=== PATIENT | male | born 1950 | race Caucasian/White ===

== ENCOUNTER → 2020-06-24 13:29 | Outpatient (BNVA) | payer MEDICARE, OTHER, SELFPAY | PROVIDERS: Family Provider Family Medicine; PCP Family Medicine; Visit Provider Specialist | DX: Z47.1 Aftercare following joint replacement surgery (principal); Z96.659 Presence of unspecified artificial knee joint | CPT/HCPCS: 73560; 73565 ==

== ENCOUNTER 2024-06-22 12:22 | Emergency (ER) | payer MEDICARE, OTHER, SELFPAY ==
[2024-06-22] VITALS (8 sets, daily range): BP systolic 121–170; BP diastolic 72–76; PULSE 58–88; RESP 16–22; TEMP 36.7; O2SAT 93–100; BMI 32.3
--- NOTE | 2024-06-22 13:05 | ED_ITS ---
HPI - Chest Pain 2 General: Chief Complaint: Chest Pain Stated Complaint: rib pain Time Seen by Provider: 06/22/24 12:59 Source: patient and family Mode of arrival: ambulatory Limitations: no limitations History of Present Illness: Patient presents to the emergency department today companied by his for evaluation treatment of left anterior and left lateral rib pain. Patient states he was outside cutting down a limb indicated to be about 7 inches in diameter. States he used his left hand and was lifting the limb up above his head when he felt a sudden pop and movement of something in his chest. He has had severe pain to his left anterior and lateral rib region since that time. He is concerned that he has broken a rib. Has not taken anything specifically for pain prior to arrival but takes meloxicam, cholesterol pill, and blood pressure medicine daily. Has not noticed an acute shortness of breath or difficulty breathing. Related Data Home Medications Medication Instructions Recorded Confirmed meloxicam 15 mg tablet 15 mg PO DAILY 06/24/20 06/24/20 Previous Rx's Medication Instructions Recorded benzonatate 200 mg capsule 200 mg PO TID PRN cough 10 days 06/22/24 #30 caps lidocaine 4 % topical patch 1 patch topical Q12H PRN pain #15 06/22/24 ea methocarbamol 750 mg tablet 750 mg PO TID #21 tabs 06/22/24 Allergies Allergy/AdvReac Type Severity Reaction Status Date / Time No Known Allergies Allergy Verified 06/24/20 13:16 Review of Systems 2 General: Reports: 10 or more systems reviewed and unremarkable except in HPI and below Physical Exam 2 Const: COMMON NORMALS: no acute distress (While still and in the reclined position.), patient oriented x3 and alert HENMT: COMMON NORMALS: normocephalic, atraumatic and hearing grossly normal bilaterally HEAD & SCALP: normocephalic and atraumatic Eye: COMMON NORMALS: Equal, round and reactive pupils present, EOMs intact bilaterally and conjunctivae normal CONJUNCTIVA: Yes conjunctivae normal P UPIL: Yes Equal, round and reactive pupils present Neck/C-Spine: COMMON NORMALS: full ROM and no JVD Lymph: LYMPHATIC: no lymphadenopathy noted Chest: OTHER: Patient with reproducible and significant tenderness to the left anterior and lateral ribs approximately T4-T8. Patient actually begins to cry out during his physical examination on palpation to his chest. Tenderness to the xiphoid process of the sternum but no mid or proximal sternal tenderness. Resp: COMMON NORMALS: normal respiratory effort, No retractions and No use of accessory muscles OTHER: No sounds or rubs or crackles. Cardio: COMMON NORMALS: no JVD, regular rate and regular rhythm RATE: r egular rate RHYTHM: regular rhythm Extremity: NARRATIVE EXTREMITY EXAM: Patient demonstrates full range of motion to his upper extremities without any acute worsening of pain into the ribs. Patient is actually laying in a reclined position with his arms up above his head which does not seem to be causing him any additional pain. Neuro: COMMON NORMALS: patient oriented x3 SENSORIUM/ORIENTATION: Yes alert Psych: COMMON NORMALS: mental status grossly normal, Normal thought process present, cooperative and normal affect THOUGHT PROCESS: Normal thought process present Skin: COMMON NORMALS: no rashes or lesions noted and turgor normal GENERAL SKIN EXAM: no rashes or lesions noted and turgor normal Course 2 Vital Signs: Vital signs: Vital Signs Temperature 98.1 F 06/22/24 12:26 Pulse Rate 70 06/22/24 15:25 Respiratory Rate 16 06/22/24 15:25 Blood Pressure 125/75 06/22/24 15:25 Pulse Oximetry 98 06/22/24 15:25 Oxygen Delivery Me thod Room Air 06/22/24 15:25 MDM - Chest Pain Medical Decision Making Patient presents emergency department today accompanied by his for evaluation treatment of left anterior and left lateral rib pain after trying to lift a limb he had cut down doing some yard work. Patient had reproducible tenderness over the ribs in this area of discomfort. CT examination showed no signs of acute bony abnormality and no concerns for underlying cardiac or pulmonary issues. Patient was originally treated with morphine but, only had minimal improvement of his discomfort. Patient was then given fentanyl as his heart rate and oxygen were stable. Patient seems to have responded well to this medication. Discussed with patient negative CT findings but, given that these are the ribs, can have pain and discomfort even for couple of weeks. Patient already takes meloxicam. Will provide him a course of benzonatate and some muscle relaxers. Patient is an extremely active 74-year-old who has tolerated his pain medication here without difficulty. I do think he will tolerate muscle relaxer without difficulty but, will give him precautions regarding muscle relaxer use. Patient was also provided an incentive spirometer and recommendations to have follow-up with his primary care doctor next week. Otherwise, any acute change in his condition should be seen and reevaluated sooner. Patient verbalizes his understanding and agreement to treatment plan. Patient had an incidental finding of 5 mm left lower lobe nodule. Patient's discharge paperwork recommended that he also notify his primary care doctor of this finding so he can have the appropriate repeat imaging and monitoring as needed. Differential Diagnosis Unlikely acute massive pulmonary embolism, acute respiratory failure, acute myocardial infarction or cardiac arrest Lab Data 06/22/24 13:11 06/22/24 13:[address] 06/22/24 13:07 IMPRESSION: 1. No acute fracture identified. 2. 5 mm nodule in the left lower lobe. Correlate with previous and/or followup imaging in accordance with the patient's risk category, per Fleischner criteria. Laboratory Results WBC 6.14 10^3/uL (3.29-11.43) 06/22/24 13:11 RBC 4.01 10^6/uL (3.85-5.65) 06/22/24 13:11 Hgb 13.10 g/dL (11.27-16.99) 06/22/24 13:11 Hct 39.3 % (37-53) 06/22/24 13:11 MCV 98.0 fl (82-101) 06/22/24 13:11 MCH 32.7 pg (27-33) 06/22/24 13:11 MCHC 33.3 g/dL (30-55) 06/22/24 13:11 RDW 14.4 % (12.1-15.1) 06/22/24 13:11 Plt Count 155 10^3/cmm (157-399) L 06/22/24 13:11 MPV 9.5 fL (7.4-10.4) 06/22/24 13:11 Neut % (Auto) 69.1 % 06/22/24 13:11 Lymph % (Auto) 18.6 % 06/22/24 13:11 Hunt % (Auto) 10.1 % 06/22/24 13:11 Eos % (Auto) 1.6 % 06/22/24 13:11 Baso % (Auto) 0.3 % 06/22/24 13:11 Neut # (Auto) 4.24 10^3/uL (1.8-7.7) 06/22/24 13:11 Lymph # (Auto) 1.1 10^3/uL (0.8-4.8) 06/22/24 13:11 Hunt # (Auto) 0.6 10^3/uL (0.2-0.9) 06/22/24 13:11 Eos # (Auto) 0.1 10^3/uL (0.0-0.8) 06/22/24 13:11 Baso # (Auto) 0.0 10^3/uL (0.0-0.1) 06/22/24 13:11 Nucleated RBC % (auto) 0 % 06/22/24 13:11 Nucleated RBCs # 0.0 /100WBC 06/22/24 13:11 Sodium 142 mmol/L (136-145) 06/22/24 13:11 Potassium 3.9 mmol/L (3.5-5.1) 06/22/24 13:11 Chloride 105 mmol/L (98-107) 06/22/24 13:11 Carbon Dioxide 26 mmol/L (22-29) 06/22/24 13:11 Anion Gap 14.9 (5-19) 06/22/24 13:11 BUN 18 mg/dL (8-23) 06/22/24 13:11 Creatinine 0.9 mg/dL (0.7-1.2) 06/22/24 13:11 GFR Calculation Not Reportable 06/22/24 13:11 Glucose 97 mg/dL (65-115) 06/22/24 13:11 Calculated Osmolality 296 mOsm/kg (285-295) H 06/22/24 13:11 Calcium 8.4 mg/dL (8.5-10.5) L 06/22/24 13:11 Total Bilirubin 0.6 mg/dL (0.15-1.2) 06/22/24 13:11 AST 39 U/L (0-40) 06/22/24 13:11 ALT 23 U/L (0-41) 06/22/24 13:11 Alkaline Phosphatase 67 U/L (40-130) 06/22/24 13:11 Total Protein 6.4 g/dL (6.6-8.7) L 06/22/24 13:11 Albumin 4.0 g/dL (3.5-5.2) 06/22/24 13:11 Globulin 2.4 g/dL (1.3-4.6) 06/22/24 13:11 All radiology interpretation(s) finalized by discharge Discharge Plan Discharge Patient Disposition: Home Clinical Impression: Costalchondritis, Acute chest wall pain Condition: Stable Prescriptions: New benzonatate 200 mg capsule 200 mg PO TID PRN (Reason: cough) 10 Days Qty: 30 0RF methocarbamol 750 mg tablet 750 mg PO TID Qty: 21 0RF lidocaine 4 % adhesive patch,medicated 1 patch topical Q12H PRN (Reason: pain) Qty: 15 0RF No Action meloxicam 15 mg tablet 15 mg PO DAILY Discharge Orders: Discharge ED (Routine); Ordered 06/22/24 Ordered By: Kourtney Tse Referrals: Salomon Aguirre MD [Primary Care Provider] - Discharge Diet: Usual diet Discharge Activity: Increase activity as tolerated Patient Instructions: Costochondritis (ED), Rib Contusion (ED) Activity Restrictions/Additional Instructions: CT examination today revealed no signs of any active rib fractures or underlying cardiac or pulmonary injury. Still, as with any type of rib injury, these can be extremely tender and sore for even a few weeks. I have given you some medication which will help with your overall pain which you can still use in addition to your meloxicam. We are also providing you an incentive spirometer for you to use to make sure you are keeping your lung tissues fully expanded to prevent developing pneumonias. I recommend you have a follow-up appoint with your primary care doctor next week for an overall recheck. While I encourage you to perform normal daily activities such as getting up to go to the bathroom, getting up and down to have meals, we do not want you to do any excessive activities or work causing you to have to lift, stoop, bend, carry, push, or pull as this can cause continued pain and worsening injury to this area of your ribs. Carefully watch for any sudden difficulty in breathing, profuse coughing, or new onset fever. If these agree need to be seen and reevaluated in the acute setting as soon as possible. *There was also an incidental finding of a very small nodule in your left lower lobe. If this is a new finding for you, recommendations are for continued evaluation and repeat imaging by your primary care doctor in the future Coding Level of Care Code ED Suspender Cutter for Dayna Aguilar
--- NOTE | 2024-06-22 13:07 | CTR_ITS ---
PROCEDURE INFORMATION: Exam: CT Chest Without Contrast; Diagnostic Exam date and time: 06/22/2024 2:52 PM Age: 74 years old Clinical indication: Injury or trauma; Other: Tree limb; Blunt trauma (contusions or hematomas); Injury date: 06/22/2024; Additional info: Left rib pain, injury, attn: T4-8 anterior and lateral TECHNIQUE: Imaging protocol: Diagnostic computed tomography of the chest without contrast. Radiation optimization: All CT scans at this facility use at least one of these dose optimization techniques: automated exposure control; mA and/or kV adjustment per patient size (includes targeted exams where dose is matched to clinical indication); or iterative reconstruction. COMPARISON: CR XR chest 2V* [id number] 06/23/2018 1:59 PM RADIATION DOSE METRICS: Total DLP (mGy-cm): 555.06 FINDINGS: Lungs: No alveolar consolidation. There is a 5 mm nodule in the left lower lobe (series 4, image 41) which is nonspecific. Correlate with previous and/or followup imaging in accordance with the patient's risk category, per Fleischner criteria. Pleural spaces: No pneumothorax. No pleural effusion. Heart: No cardiomegaly. No significant pericardial effusion. Coronary arterial calcifications are detected. Lymph nodes: No lymphadenopathy. Vasculature: No thoracic aortic aneurysm is seen. Atherosclerotic vascular disease is noted. Bones/joints: There are diffuse enthesopathic changes consistent with benign diffuse idiopathic skeletal hyperostosis (DISH). No acute fracture is identified. Soft tissues: Unremarkable. CT/CT chest con [id number] IMPRESSION: 1. No acute fracture identified. 2. 5 mm nodule in the left lower lobe. Correlate with previous and/or followup imaging in accordance with the patient's risk category, per Fleischner criteria.
[2024-06-22] MEDS: morphine 4 mg/mL SDV 1 mL IVP (13:15)
[2024-06-22 13:31] LABS: Basophils % 0.3 %; Eosinophils # 0.1 10^3/uL (0.0-0.8); Eosinophils % 1.6 %; Hematocrit 39.3 % (37-53); Lymphocytes # 1.1 10^3/uL (0.8-4.8); Lymphocytes % 18.6 %; Mean Corpuscular HGB Conc 33.3 g/dL (30-55); Mean Corpuscular Hemoglobin 32.7 pg (27-33); Mean Platelet Volume 9.5 fL (7.4-10.4); Monocytes # 0.6 10^3/uL (0.2-0.9); Monocytes % 10.1 %; Neutrophils # 4.24 10^3/uL (1.8-7.7); Neutrophils % 69.1 %; Nucleated Red Blood Cells % 0 %; Platelet Count 155 10^3/cmm (157-399); Red Blood Count 4.01 10^6/uL (3.85-5.65); Red Cell Distribution Width 14.4 % (12.1-15.1); White Blood Count 6.14 10^3/uL (3.29-11.43)
[2024-06-22 13:40] LABS: Alanine Aminotransferase 23 U/L (0-41); Alkaline Phosphatase 67 U/L (40-130); Anion Gap 14.9 (5-19); Aspartate Amino Transferase 39 U/L (0-40); Blood Urea Nitrogen 18 mg/dL (8-23); Calcium 8.4 mg/dL (8.5-10.5); Carbon Dioxide 26 mmol/L (22-29); Chloride 105 mmol/L (98-107); Creatinine Clr Calc Pharmacy 99.7354; Globulin 2.4 g/dL (1.3-4.6); Glucose 97 mg/dL (65-115); Osmolality Calculated 296 mOsm/kg (285-295); Potassium 3.9 mmol/L (3.5-5.1); Sodium 142 mmol/L (136-145); Total Bilirubin 0.6 mg/dL (0.15-1.2); Total Protein 6.4 g/dL (6.6-8.7)
[2024-06-22] MEDS: fentaNYL 50 mcg/mL INJ 2mL IVP (13:45)
--- NOTE | 2024-06-22 13:49 | PC.NURSE ---
Patient states that pain is still 8/10 after Morphine dose. Pt shaking in VF chair and crying d/t pain level. Provider notified and Meds ordered. Pts vital reassessed and given Fentanyl ivp. Pt left on vitals monitor to continuously observe his oxygen sats.
[2024-06-22] MEDS: orphenadrine 30 mg/mL Inj 2 mL 60 MG IVP (15:42)
== END 2024-06-22 16:09 | disposition home or self-care (01) ==
PROVIDERS: Emergency Provider Physician Assistant; PCP Family Medicine
DX: M94.0 Chondrocostal junction syndrome [Tietze] (principal); R07.89 Other chest pain
CPT/HCPCS: 71250; 80053; 85025; 96374; 96375; 99285; J2270; J2360; J3010